=== PATIENT | female | born 1950 | race Caucasian/White ===

== ENCOUNTER 2020-09-20 13:37 | Outpatient (CLI) | payer MEDICARE | END 2020-09-20 13:38 | disposition home or self-care (01) | LOC: CSHMRI 13:37 | PROVIDERS: ATTEND Family Medicine | DX: M54.16 Radiculopathy, lumbar region (principal); M47.816 Spondylosis without myelopathy or radiculopathy, lumbar region | CPT/HCPCS: 72148 ==